=== PATIENT | female | born 1940 | race Caucasian/White ===

== ENCOUNTER → 2017-09-02 | Outpatient (CLI) | payer MEDICARE | END | disposition home or self-care (01) | LOC: RAD 13:52 | DX: M81.8 Other osteoporosis without current pathological fracture (principal) ==

== ENCOUNTER 2017-10-23 17:30 | Inpatient (IN) | payer MEDICARE ==
[~2017-10-23] VITALS: Ht 162.5 cm; Wt 70.9 kg
--- NOTE | ~2017-10-23 | DS ---
[place], [place] DISCHARGE SUMMARY NAME: [facility]ТРИ[facility] CHAM[facility]ERS UNIT #: [id number] ROOM: 506 DOCTOR: BOSTON ARMSTRONG MD BIRTHDATE: [birth year] DOS: 10/25/2017 DIAGNOSES: 1. Vasovagal syncope. 2. Bradycardia. 3. Benign hypertension. 4. Urinary tract infection with gram-negative bacteria, identification not available. 5. Benign hypertension. 6. Mixed hyperlipidemia. 7. Benign positional vertigo. HOSPITAL COURSE: This patient is 77 years old. The patient was getting up to go to the bathroom at night. She had a blackout, was found on the floor. She came back to her senses and realized she had hit her head and developed laceration on the forehead, so she was brought to the Emergency Room, she was evaluated and was admitted. The patient was diagnosed with vasovagal syncope. Orthostatics were checked, which did not show much drop. Consultation with Dr. Jones was obtained. Echocardiogram, carotid Doppler, CT of the head were all normal. She was found to be quite bradycardic, so the metoprolol has been discontinued. This could have contributed to her syncope. Also, was noted to have bladder infection, which was treated with IV antibiotics and IV fluids. The patient is overall stable and improved and so the plan therefore is to discharge her to home. Follow up with Dr. Caballero. Medications will be amlodipine 10 daily, Ceftin 250 twice a day for 5 days, atorvastatin 20 daily, trazodone 50 at bedtime, tolterodine 4 mg at bedtime, metoprolol has been discontinued. BOSTON ARMSTRONG MD CM:DISCHARG [id number] BOSTON ARMSTRONG MD 11/01/17 0937 interface
--- NOTE | ~2017-10-23 | WRIGHTHP ---
[place], [place] PATIENT HISTORY AND PHYSICAL EXAM NAME: [id number] UNIT #: [id number] ROOM: 506 DOCTOR: BOSTON ARMSTRONG MD BIRTHDATE: [birth year] DOS: HISTORY OF PRESENT ILLNESS: The patient is not known to me, 77 years old. She was at home. At night, she got up to go to the bathroom. She knew that she was going, but then found on the side of her bed on the floor. She does not remember what happened. She does not remember blacking out, but she did strike her head and developed a laceration on the forehead. She denies having any chest pains or palpitations. The patient does not have any fever or chills and does not have any abdominal pain or nausea and any emesis. PAST MEDICAL HISTORY: Significant for: 1. Benign hypertension. 2. Mixed hyperlipidemia. 3. Benign positional vertigo. MEDICATIONS THAT SHE IS TAKING: Atorvastatin 20 daily, metoprolol 100 daily, polyethylene 17 grams twice a day, tolterodine 4 mg daily and trazodone 50 at bedtime. SOCIAL HISTORY: The patient is a nonsmoker and does not use any alcohol. She lived in [place] for about 40 years. She just moved to [place] recently to be with her son. PHYSICAL EXAMINATION: GENERAL: On examination, the patient is awake, alert and oriented. VITAL SIGNS: Graphic trend shows a blood pressure of 172/68, pulse of 58, respirations 20 and temperature is 97.4. RESPIRATORY: Lungs have diminished breath sounds, clear. HEART: Regular. GASTROINTESTINAL: Abdomen is obese, soft and nontender. EXTREMITIES: Without any edema. SKIN: Small laceration noticed on the right side of the forehead. EXTREMITIES: No neurological deficits noted. ASSESSMENT AND PLAN: 1. This is a patient, who presents with a syncopal episode, most likely vasovagal. It is also possible she may have been bradycardic, so we will cut back on the metoprolol dosing and add a low dose of Norvasc. 2. An echocardiogram and a carotid Doppler are being ordered. 3. Urinary tract infection: Urine culture is reflux. Intravenous fluids and intravenous antibiotics have been ordered. She may have become vasovagal from orthostatic hypotension. Orthostatics will be checked. CT of the head and cervical spine were negative. A Physical Therapy and Occupational Therapy consultation is obtained. [place], [place] PATIENT HISTORY AND PHYSICAL EXAM NAME: [facility]РИ[facility] CHAMBERS UNIT #: [id number] ROOM: [facility] DOCTOR: BOSTON ARMSTRONG MD BIRTHDATE: [birth year] BOSTON ARMSTRONG MD CM:HISPHYS:PATIENT HISTORY AND PHYSICAL EXAMINATION [id number] BOSTON ARMSTRONG MD 10/24/17 0816 interface
--- NOTE | ~2017-10-23 | PR ---
[place], [place] PROGRESS NOTE NAME: ДМИТРИЙ CHAMBERS UNIT #: [id number] ROOM: 506 DOCTOR: BOSTON ARMSTRONG MD BIRTHDATE: [birth year] DOS: SUBJECTIVE: The patient is doing fine without any complaints. Appreciate Dr. Jones's input. OBJECTIVE: VITAL SIGNS: Blood pressure is 152/51, pulse of 53, respirations 16, temperature 98.1. LUNGS: Clear. HEART: Regular. ABDOMEN: Obese. EXTREMITIES: Without any edema. LABORATORY DATA: WBC count is normal at 9.0, hemoglobin 12.4. BMP within normal limits. Urine culture, 50,000 moderate gram-negative bacteria, identification is not available. Echocardiogram showed normal LV function. ASSESSMENT AND PLAN: 1. The patient who presents with syncope, most likely vasovagal. She also was quite bradycardic, so the metoprolol was discontinued. Continues to be bradycardic, but is no longer dizzy or lightheaded. The plan therefore is to discharge her to home today. 2. Urinary tract infection. Antibiotics have been started. The possibility of orthostasis is also being considered, even the orthostatic blood pressure did not show much drops. Follow up with Dr. Caballero as an outpatient. BOSTON ARMSTRONG MD CM:PNTRANS [id number] BOSTON ARMSTRONG MD 11/01/17 0938 interface
--- NOTE | ~2017-10-23 | CON ---
[place], [place] REPORT OF CONSULTATION NAME: [facility]ТРИ[facility] CHAMBERS UNIT #: [id number] ROOM: 506 DOCTOR: NOEL MANCILLA MD BIRTHDATE: [birth year] DOS: 10/24/2017 HISTORY OF PRESENT ILLNESS: This is a 77-year-old -[place] woman. She sees Dr. Galloway on a regular basis, who has been attending her hypertension. She has chronic positional vertigo that has bothered her on and off frequently. She also has hyperlipidemia. She has never had a heart attack, stroke, rhythm disorder of the heart disease, cancer, or COPD. She does have GERD. She has never smoked, never used alcoholic beverages and claims she has a "boring life." She went to bed and was standing on the foot end of the bed and next thing she knows she woke up from the floor with a gash on her forehead. She did not have any palpitations, any sweating, spinning sensation, or any feeling that she is going to pass out. She had no spinning sensation. When she regained consciousness, she had no symptoms to speak of. Previously she has not had any loss of consciousness, although vertigo has caused problem with balance. HOME MEDICATIONS: Atorvastatin, metoprolol 100 daily, polyethylene 17 grams daily, trazodone 50 mg at bedtime, and tolterodine 4 mg daily. PHYSICAL EXAMINATION: GENERAL: This is a patient, who is very pleasant, alert. She is healthy looking, tall, slim. No thyromegaly or finger clubbing. She is not cyanotic. No jaundice. VITAL SIGNS: Temperature is normal, pulse is 56 and regular, blood pressure 162/88. Highest blood pressure is 192/68. NECK: JVP is normal. AJR is negative. There is no carotid bruit. HEART: There is no cardiomegaly. There are no murmurs or rubs. EXTREMITIES: She has good pedal pulses and no edema in the lower extremities. RESPIRATORY: Lungs are clear to percussion and auscultation with excellent breath sounds. There is no chest wall tenderness. ABDOMEN: Supple, nontender. LABORATORY DATA: ECG shows normal sinus rhythm and normal pattern. Labs essentially normal. IMPRESSION: This patient had a loss of consciousness and had facial injury, reason is not clear so far, there have not been any dysrhythmias. EKG is normal. It is possible that she had a severe acute vertiginous episode that caused her to drop to the floor. An echocardiogram was ordered and I will take a look at it. I doubt if there is any cardiac reason for the fall. Thank you for this consult. [place], [place] REPORT OF CONSULTATION NAME: ДМ[facility]ТРИЙ CHAMBERS UNIT #: [id number] ROOM: 506 DOCTOR: NOEL MANCILLA MD BIRTHDATE: [birth year] NOEL MANCILLA MD CM:CONSTR:REPORT OF CONSULTATION 1028 10/25/17 0002 interface
[2017-10-23 17:36] VITALS: BP 184/70
[2017-10-23 18:17] LABS: BASO % 0.4 % (0.0-1.0); EOS # 0.1 10*3/uL (0.0-0.4); EOS % 1.2 % (1.0-4.0); HEMATOCRIT 41.4 % (37.0-47.0); HEMOGLOBIN 13.4 g/dl (12.0-16.0); LYMPH # 2.6 10*3/uL (1.3-4.4); MEAN CELL VOLUME 91.8 fl (81.0-99.0); MEAN CORPUSCULAR HGB 29.7 pg (27.0-31.0); MEAN CORPUSCULAR HGB CONC 32.4 g/dl (33.0-37.0); MEAN PLATELET VOLUME 9.8 fl (9.6-12.3); MONO # 0.6 10*3/uL (0.1-1.0); MONO % 6.2 % (3.0-9.0); NEUT # 6.2 10*3/uL (2.3-7.9); NEUT % 64.9 % (47.0-73.0); PLATELET COUNT AUTOMATED 279 10*3/uL (130-400); RED BLOOD COUNT 4.51 10*6/uL (4.10-5.10); RED CELL DISTRI WIDTH 13.2 % (0-14.5); WHITE BLOOD COUNT 9.5 10*3/uL (4.8-10.8)
[2017-10-23 18:34] LABS: ALBUMIN 3.9 gm/dl (3.1-4.5); ALKALINE PHOSPHATASE 89 U/L (45-117); BUN 20 mg/dl (7-24); CHLORIDE 106 mmol/L (98-107); CREATININE 1.26 mg/dL (0.55-1.02); POTASSIUM 4.3 mmol/L (3.5-5.1); SGOT/AST 21 IU/L (3-35); SGPT/ALT 25 U/L (12-78); SODIUM 140 mmol/L (136-145); TOTAL PROTEIN 7.4 gm/dL (6.4-8.2)
[2017-10-23 18:36] VITALS: BP 168/68
[2017-10-23 18:38] LABS: TROPONIN I < 0.015 ng/ml (<0.045)
[2017-10-23 18:54] LABS: BILIRUBIN NEGATIVE (NEGATIVE); BLOOD 2+ (NEGATIVE); CLARITY SL CLOUDY (CLEAR); COLOR YELLOW (YELLOW); GLUCOSE NEGATIVE (NEGATIVE); KETONE NEGATIVE (NEGATIVE); LEUKO ESTERASE 3+ (NEGATIVE); NITRITE NEGATIVE (NEGATIVE); PH 6.5 (5.0-9.0); SPECIFIC GRAVITY 1.015 (1.005-1.030); UROBILINOGEN 0.2 E.U./dl (0.2-1.0)
[2017-10-23 19:16] LABS: BACTERIA 4+; EPITHELIAL CELLS 16-20
[2017-10-23 19:17] LABS: WBC 51-100 wbc/hpf (0-5)
[2017-10-23 19:18] LABS: RBC 21-30 rbc/hpf (0-2)
[2017-10-23 19:40] VITALS: BP 192/68
[2017-10-23 20:00] VITALS: BP 89/62
[2017-10-23 20:53] VITALS: BP 172/72; BP 192/68
[2017-10-23 21:10] VITALS: BP 172/68
[2017-10-23] MEDS ORDERED: ATORVASTATIN CA20 M1 PO (21:12)
[2017-10-23] MEDS ORDERED: METOPROLOL SUC100 M1 PO (21:13)
[2017-10-23] MEDS ORDERED: TRAZODONE50 MG PO (21:13)
[2017-10-23] MEDS ORDERED: MIRALAX17 GM PO (21:14)
[2017-10-23] MEDS ORDERED: TOLTERODINE TART4 M1 PO (21:15)
[2017-10-24] VITALS: BP 129/43
[2017-10-24 07:19] LABS: BASO % 0.5 % (0.0-1.0); EOS # 0.1 10*3/uL (0.0-0.4); EOS % 1.7 % (1.0-4.0); HEMATOCRIT 38.6 % (37.0-47.0); HEMOGLOBIN 12.2 g/dl (12.0-16.0); LYMPH # 2.9 10*3/uL (1.3-4.4); LYMPH % 34.5 % (27.0-41.0); MEAN CELL VOLUME 92.3 fl (81.0-99.0); MEAN CORPUSCULAR HGB 29.2 pg (27.0-31.0); MEAN CORPUSCULAR HGB CONC 31.6 g/dl (33.0-37.0); MEAN PLATELET VOLUME 10.7 fl (9.6-12.3); MONO # 0.7 10*3/uL (0.1-1.0); MONO % 8.9 % (3.0-9.0); NEUT # 4.5 10*3/uL (2.3-7.9); NEUT % 54.3 % (47.0-73.0); PLATELET COUNT AUTOMATED 214 10*3/uL (130-400); RED BLOOD COUNT 4.18 10*6/uL (4.10-5.10); RED CELL DISTRI WIDTH 13.2 % (0-14.5); WHITE BLOOD COUNT 8.3 10*3/uL (4.8-10.8)
[2017-10-24 07:42] LABS: BUN 18 mg/dl (7-24); CHLORIDE 108 mmol/L (98-107); CREATININE 1.05 mg/dL (0.55-1.02); POTASSIUM 3.9 mmol/L (3.5-5.1); SODIUM 142 mmol/L (136-145)
[2017-10-24 08:00] VITALS: BP 162/88
[2017-10-24 12:00] VITALS: BP 191/74
[2017-10-24 17:07] VITALS: BP 151/64
[2017-10-24 20:00] VITALS: BP 149/67
[2017-10-25] VITALS: BP 152/51
[2017-10-25 06:21] LABS: BASO # 0.1 10*3/uL (0.0-0.1); BASO % 0.6 % (0.0-1.0); EOS # 0.2 10*3/uL (0.0-0.4); EOS % 1.9 % (1.0-4.0); HEMATOCRIT 38.5 % (37.0-47.0); HEMOGLOBIN 12.4 g/dl (12.0-16.0); LYMPH # 3.1 10*3/uL (1.3-4.4); LYMPH % 34.1 % (27.0-41.0); MEAN CELL VOLUME 91.4 fl (81.0-99.0); MEAN CORPUSCULAR HGB 29.5 pg (27.0-31.0); MEAN CORPUSCULAR HGB CONC 32.2 g/dl (33.0-37.0); MEAN PLATELET VOLUME 9.9 fl (9.6-12.3); MONO # 0.9 10*3/uL (0.1-1.0); MONO % 9.5 % (3.0-9.0); NEUT # 4.8 10*3/uL (2.3-7.9); NEUT % 53.7 % (47.0-73.0); PLATELET COUNT AUTOMATED 246 10*3/uL (130-400); RED BLOOD COUNT 4.21 10*6/uL (4.10-5.10); RED CELL DISTRI WIDTH 13.2 % (0-14.5)
[2017-10-25 06:52] LABS: CHLORIDE 108 mmol/L (98-107); POTASSIUM 3.6 mmol/L (3.5-5.1); SODIUM 143 mmol/L (136-145)
[2017-10-25 06:57] LABS: BUN 15 mg/dl (7-24); CREATININE 0.95 mg/dL (0.55-1.02)
[2017-10-25] MEDS ORDERED: CEFUROXIME AXE250 MG PO (07:18)
[2017-10-25] MEDS ORDERED: AMLODIPINE BESY10 MG PO (07:18)
[2017-10-25 08:00] VITALS: BP 152/56
== END 2017-10-25 09:25 | disposition home or self-care (01) | DRG 690 ==
LOC: ED 17:30 → 5E 19:47 → EDHOLD 19:47 → 5E 20:33
PROVIDERS: Internal Medicine; Nurse Practitioner Family
DX: N39.0 Urinary tract infection, site not specified (principal); B96.89 Other specified bacterial agents as the cause of diseases classified elsewhere; R00.1 Bradycardia, unspecified; E78.2 Mixed hyperlipidemia; H81.10 Benign paroxysmal vertigo, unspecified ear; I10 Essential (primary) hypertension; K21.9 Gastro-esophageal reflux disease without esophagitis; S01.81XA Laceration without foreign body of other part of head, initial encounter; W01.198A Fall on same level from slipping, tripping and stumbling with subsequent striking against other object, initial encounter; Y93.89 Activity, other specified; Y92.89 Other specified places as the place of occurrence of the external cause; Y99.8 Other external cause status; Z88.8 Allergy status to other drugs, medicaments and biological substances; Z79.899 Other long term (current) drug therapy

== ENCOUNTER 2017-12-27 15:42 | Emergency (ER) | payer MEDICARE ==
[~2017-12-27] VITALS: Ht 162 cm; Wt 70.8 kg
[~2017-12-27 15:42] MED LIST: AMLODIPINE BESY10 MG PO; ATORVASTATIN CA20 M1 PO; CEFUROXIME AXE250 MG PO; METOPROLOL SUC100 M1 PO; MIRALAX17 GM PO; TOLTERODINE TART4 M1 PO; TRAZODONE50 MG PO
[2017-12-27] MEDS ORDERED: OMEPRAZOLE20 M2 PO (15:45)
[2017-12-27] MEDS ORDERED: AUGMENTIN 875875 MG PO (15:55)
== END 2017-12-27 16:31 | disposition home or self-care (01) ==
LOC: ED 15:42
DX: S61.217A Laceration without foreign body of left little finger without damage to nail, initial encounter (principal); S61.257A Open bite of left little finger without damage to nail, initial encounter; Z88.8 Allergy status to other drugs, medicaments and biological substances; Z79.899 Other long term (current) drug therapy; W54.0XXA Bitten by dog, initial encounter; Y93.89 Activity, other specified; Y92.89 Other specified places as the place of occurrence of the external cause; Y99.8 Other external cause status

== ENCOUNTER → 2018-09-30 | Outpatient (CLI) | payer MEDICARE ==
[~2018-09-30] MED LIST changes: +AUGMENTIN 875875 MG PO; +OMEPRAZOLE20 M2 PO; +PREDNISONE50 MG PO; +TESSALON PERLE100 MG PO
== END | disposition home or self-care (01) ==
LOC: RAD 14:10
DX: R06.02 Shortness of breath (principal); N39.0 Urinary tract infection, site not specified; R05 Cough; R53.83 Other fatigue

== ENCOUNTER → 2020-11-24 | Outpatient (CLI) | payer MEDICARE | END | disposition home or self-care (01) | LOC: MAMMO 11:30 | PROVIDERS: ATTEND Nurse Practitioner Family | DX: Z12.31 Encounter for screening mammogram for malignant neoplasm of breast (principal); N64.89 Other specified disorders of breast ==

== ENCOUNTER → 2021-03-29 | Outpatient (CLI) | payer MEDICARE | END | disposition home or self-care (01) | LOC: RAD 12:24 | PROVIDERS: ATTEND Nurse Practitioner Family | DX: M16.11 Unilateral primary osteoarthritis, right hip (principal); M25.751 Osteophyte, right hip ==

== ENCOUNTER → 2022-07-11 | Outpatient (CLI) | payer MEDICARE ==
[2022-07-11 12:15] LABS: BASO # 0.1 10*3/uL (0.0-0.1); BASO % 0.6 % (0.0-1.0); EOS # 0.2 10*3/uL (0.0-0.4); EOS % 1.9 % (1.0-4.0); LYMPH # 2.4 10*3/uL (1.3-4.4); LYMPH % 25.1 % (27.0-41.0); MEAN CELL VOLUME 90.3 fl (81.0-99.0); MEAN CORPUSCULAR HGB CONC 32.1 g/dl (33.0-37.0); MEAN PLATELET VOLUME 9.5 fl (9.6-12.3); MONO # 0.9 10*3/uL (0.1-1.0); MONO % 9.1 % (3.0-9.0); NEUT # 6.1 10*3/uL (2.3-7.9); NEUT % 63.1 % (47.0-73.0); PLATELET COUNT AUTOMATED 336 10*3/uL (130-400); RED BLOOD COUNT 4.65 10*6/uL (4.10-5.10); RED CELL DISTRI WIDTH 13.6 % (0-14.5); WHITE BLOOD COUNT 9.7 10*3/uL (4.8-10.8)
[2022-07-11 12:33] LABS: ALKALINE PHOSPHATASE 65 U/L (46-116); BUN 13 mg/dl (9-23); CHLORIDE 106 mmol/L (98-107); CHOLESTEROL 195 mg/dL (<200); LDL CHOLESTEROL 109 mg/dL (9-159); POTASSIUM 3.9 mmol/L (3.4-5.1); SGPT/ALT 14 U/L (10-49); TRIGLYCERIDES 179 mg/dl (<150)
== END | disposition home or self-care (01) ==
LOC: LAB 11:48
PROVIDERS: ATTEND Nurse Practitioner Family
DX: I10 Essential (primary) hypertension (principal)

== ENCOUNTER → 2022-08-20 | Outpatient (CLI) | payer MEDICARE | END | disposition home or self-care (01) | LOC: MAMMO 10:37 | PROVIDERS: ATTEND Nurse Practitioner Family | DX: Z12.31 Encounter for screening mammogram for malignant neoplasm of breast (principal); N64.89 Other specified disorders of breast ==

== ENCOUNTER 2023-04-26 16:13 | Emergency (ER) | payer MEDICARE ==
[~2023-04-26] VITALS: Ht 162.5 cm; Wt 59.9 kg
[2023-04-26 17:58] LABS: BASO % 0.4 % (0.0-1.0); EOS # 0.1 10*3/uL (0.0-0.4); EOS % 0.8 % (1.0-4.0); LYMPH # 2.6 10*3/uL (1.3-4.4); MEAN CELL VOLUME 90.1 fl (81.0-99.0); MEAN CORPUSCULAR HGB 28.8 pg (27.0-31.0); MEAN PLATELET VOLUME 9.5 fl (9.6-12.3); MONO # 0.8 10*3/uL (0.1-1.0); MONO % 7.9 % (3.0-9.0); NEUT # 6.8 10*3/uL (2.3-7.9); NEUT % 65.7 % (47.0-73.0); PLATELET COUNT AUTOMATED 295 10*3/uL (130-400); RED BLOOD COUNT 4.44 10*6/uL (4.10-5.10); RED CELL DISTRI WIDTH 13.2 % (0-14.5); WHITE BLOOD COUNT 10.3 10*3/uL (4.8-10.8)
[2023-04-26 18:21] LABS: ALKALINE PHOSPHATASE 77 U/L (46-116); BUN 14 mg/dl (9-23); CHLORIDE 104 mmol/L (98-107); POTASSIUM 3.7 mmol/L (3.4-5.1); SGPT/ALT 10 U/L (5-49); TOTAL PROTEIN 6.8 gm/dL (6.0-8.0)
[2023-04-26 18:28] LABS: BILIRUBIN Negative (Negative); BLOOD Trace-Lysed (Negative); CLARITY Clear (Clear); COLOR Yellow (Yellow); GLUCOSE Negative (Negative); KETONE Negative (Negative); LEUKO ESTERASE 2+ (Negative); NITRITE Negative (Negative); SPECIFIC GRAVITY 1.015 (1.001-1.030)
[2023-04-26 18:46] LABS: BACTERIA 4+; WBC 31-40 wbc/hpf (0-5)
== END 2023-04-26 19:57 | disposition home or self-care (01) ==
LOC: ED 16:13
PROVIDERS: Physician Assistant Medical
DX: K59.00 Constipation, unspecified (principal); Z88.8 Allergy status to other drugs, medicaments and biological substances; Z98.890 Other specified postprocedural states

== ENCOUNTER → 2023-04-26 | Outpatient (CLI) | payer MEDICARE | END | disposition home or self-care (01) | LOC: RAD 13:33 | PROVIDERS: ATTEND Nurse Practitioner Family | DX: K59.00 Constipation, unspecified (principal); Z96.642 Presence of left artificial hip joint ==

== ENCOUNTER 2024-06-09 12:52 | Emergency (ER) | payer MEDICARE ==
[~2024-06-09] VITALS: Ht 162.5 cm; Wt 66.2 kg
[2024-06-09] MEDS ORDERED: OXYBUTYNIN CHLOR5 M1 PO (13:14)
[2024-06-09] MEDS ORDERED: COZAAR25 M1 PO (13:15)
[2024-06-09] MEDS ORDERED: MAGNESIUM250 M1 PO (13:15)
[2024-06-09] MEDS ORDERED: VITAMIN C500 M4 PO (13:16)
[2024-06-09] MEDS ORDERED: VITAMIN D325 MCG PO (13:16)
[2024-06-09] MEDS ORDERED: VITAMIN B-121000 MC2 PO (13:16)
[2024-06-09 13:29] LABS: BASO # 0.1 10*3/uL (0.0-0.1); BASO % 0.6 % (0.0-1.0); EOS # 0.3 10*3/uL (0.0-0.4); EOS % 2.8 % (1.0-4.0); HEMATOCRIT 36.9 % (37.0-47.0); MEAN CELL VOLUME 90.4 fl (81.0-99.0); MEAN CORPUSCULAR HGB 29.2 pg (27.0-31.0); MEAN CORPUSCULAR HGB CONC 32.2 g/dl (33.0-37.0); MEAN PLATELET VOLUME 9.5 fl (9.6-12.3); MONO # 0.8 10*3/uL (0.1-1.0); MONO % 7.2 % (3.0-9.0); NEUT # 6.9 10*3/uL (2.3-7.9); NEUT % 66.4 % (47.0-73.0); PLATELET COUNT AUTOMATED 285 10*3/uL (130-400); RED BLOOD COUNT 4.08 10*6/uL (4.10-5.10); RED CELL DISTRI WIDTH 13.6 % (0-14.5); WHITE BLOOD COUNT 10.4 10*3/uL (4.8-10.8)
[2024-06-09 13:49] LABS: TOTAL PROTEIN 6.9 gm/dL (6.0-8.0)
[2024-06-09] MEDS ORDERED: PREDNISONE20 M1 PO (15:03)
[2024-06-09] MEDS ORDERED: AVPAK AZITHROM250 M1 PO (15:03)
[2024-06-09] MEDS ORDERED: AZITHROMYCIN 250 MG TAB PO ONE (15:05)
[2024-06-09] MEDS ORDERED: methylPREDNISolone sod succ 125 MG VIAL IV ONE (15:05)
== END 2024-06-09 15:05 | disposition home or self-care (01) ==
LOC: ED 12:52
PROVIDERS: Nurse Practitioner Family
DX: J40 Bronchitis, not specified as acute or chronic (principal); Z88.8 Allergy status to other drugs, medicaments and biological substances; Z79.899 Other long term (current) drug therapy